=== PATIENT | female | born 1955 | race Caucasian/White ===

== ENCOUNTER → 2016-10-11 | Outpatient (CLI) | payer BC ==
[~2016-10-11] MED LIST: ACET-1311 PO; ACET-749 PO; AMIT10TA6 PO; ATEN50TA8 PO; FENO145T26 PO; GLUCOSAMINE; IBUP-1050 PO; SUMA50TA15 PO
--- NOTE | 2016-10-13 12:32 | MAMMOGRAPHY REPORT ---
BILATERAL DIGITAL SCREENING MAMMOGRAM TOMOSYNTHESIS WITH CAD: 10/11/2016 CLINICAL HISTORY: Routine screening. Patient has no complaints. TECHNIQUE: Breast tomosynthesis in addition to standard 2D mammography was performed. Current study was also evaluated with a Computer Aided Detection (CAD) system. COMPARISON: Comparison is made to exams dated: 10/09/2015 mammogram, 10/07/2014 mammogram, 10/04/2013 m ammogram, 10/03/2012 mammogram, 09/28/2011 mammogram, and 08/10/2010 mammogram - [facility] nter. BREAST COMPOSITION: There are scattered areas of fibroglandular density in both breasts. FINDINGS: There are scattered bilateral punctate benign-appearing micro-calcifications. Stable nodul ar asymmetry in the lateral anterior right breast appears very similar on all available prior mammogr ams dating back to at least 08/04/2009, therefore likely benign. No new suspicious mass, architectur al distortion or cluster of microcalcifications is seen. IMPRESSION: ACR BI-RADS CATEGORY 1: NEGATIVE There is no mammographic evidence of malignancy. A 1 year screening mammogram is recommended. The pa tient will receive written notification of the results. Approximately 10% of breast cancers are not detected with mammography. A negative mammographic report should not delay biopsy if a clinically suggestive mass is present. Mellissa Segundo M.D. ay/:10/11/2016 15:11:57 Medical Physicist: Faith ANN)(Aleks), [facility] letter sent: Normal 1/2 BI-RADS Code: ACR BI-RADS Category 1: Negative
== END | disposition home or self-care (01) ==
LOC: C.MAMM 10:11
PROVIDERS: ATTEND Family Medicine
DX: Z12.31 Encounter for screening mammogram for malignant neoplasm of breast (principal)

== ENCOUNTER 2016-10-19 10:29 | Observation (INO) | payer BC ==
[~2016-10-19] VITALS: Ht 167.6 cm; Wt 83.6 kg
[~2016-10-19 10:29] MED LIST changes: -AMIT10TA6 PO; -ATEN50TA8 PO; -FENO145T26 PO
[2016-10-19 11:02] LABS: HEMATOCRIT 38.8 % (37-47); MEAN CELL VOLUME 89.4 fL (80-100); MEAN CORPUSCULAR HGB CONC 33.5 g/dl (32-36); MEAN PLATELET VOLUME 9.3 fL (7.4-10.4); PLATELET COUNT 244 K/uL (130-400); RED BLOOD COUNT 4.34 M/uL (4.2-5.4); WHITE BLOOD COUNT 6.15 K/uL (4.8-10.8)
--- NOTE | 2016-10-19 11:12 | DIAGNOSTIC IMAGING REPORT ---
CHEST ONE VIEW PORTABLE HISTORY:61 yearsFemalechest pain COMPARISON: None available TECHNIQUE: Upright AP view of the chest. FINDINGS: The patient is slightly rotated to the right. Cardiac silhouette is mildly enlarged. There is no pneumothorax, pleural effusion, focal airspace consolidation or overt pulmonary edema. There is mild left hemidiaphragmatic elevation. The bones are grossly intact. IMPRESSION: No acute cardiopulmonary process. The above report was generated using voice recognition software. It may contain grammatical, syntax or spelling errors. Electronically signed by: Jose Nolasco M.D. 10/19/2016 11:11 AM Dictated Date/Time: 10/19/2016 11:10 AM
[2016-10-19 11:14] LABS: PROTHROMBIN TIME (PATIENT) 10.6 SECONDS (9.0-12.0)
[2016-10-19] MEDS ORDERED: ATEN50TA8 PO (11:19)
[2016-10-19] MEDS ORDERED: AMIT10TA6 PO (11:19)
[2016-10-19] MEDS ORDERED: FENO145T26 PO (11:19)
[2016-10-19 11:20] LABS: BUN/CREATININE RATIO 19.9 (10-20); CALCIUM 9.3 mg/dl (8.5-10.1); CREATININE 1.1 mg/dl (0.60-1.20); POTASSIUM 4.2 mmol/L (3.5-5.1)
[2016-10-19] MEDS ORDERED: ASPIRIN 81 MG CHEW PO STA (11:23)
[2016-10-19 11:24] LABS: ALB/GLOB RATIO 0.9 (0.9-2); CKMB/CK RATIO 2.1 (0-3.0)
[2016-10-19] MEDS ORDERED: MoRPHine SULFATE 2 MG/ML CARP IV PRN (12:45)
[2016-10-19] MEDS ORDERED: ONDANSETRON INJ 2 MG/ML 2 ML VIAL IV PRN (12:45)
[2016-10-19] MEDS ORDERED: ZOLPIDEM TARTRATE 5 MG TAB PO PRN (12:45)
[2016-10-19] MEDS ORDERED: ACETAMINOPHEN 325 MG TAB PO PRN (12:45)
[2016-10-19] MEDS ORDERED: NITROGLYCERIN 0.4 MG SL PER TAB CHARGE SL PRN (12:45)
[2016-10-19] MEDS ORDERED: ALUMINUM/MAGNESIUM/SIMETH (MAALOX MAX) 30 ML UDC PO PRN (12:45)
[2016-10-19] MEDS ORDERED: MAGNESIUM HYDROXIDE SUSP 30 ML UDC PO PRN (12:45)
--- NOTE | 2016-10-19 13:38 | History and Physical ---
History & Physical Date & Time of Service: Oct 19, 2016 at 13:28 Chief Complaint: Chest Pains, Extreme Sweating, Dizzy Primary Care Physician: Elder Ashton M.D. History of Present Illness Source: patient 61 y/o F Hx HTN, HPL - pt was exerting herself at work, moving around palates when she developed acute pain at her R sternal border accompanied bu profuse diaphoresis and light-headedness. She attending the emergency room where the pain without accompanying symptoms has recurred to a lesser degree. She denies SOB, N/V. Past Medical/Surgical History 1) HTN 2) HPL 3) Migraine headaches Family History Mother alive and well Father alive - CAD - OK at age 65 Social History Does not smoke - occasional ETOH Smoking Status: Never Smoker Immunizations History of Influenza Vaccine: No History of Tetanus Vaccine?: Yes History of Pneumococcal: No History of Hepatitis B Vaccine: No Allergies Coded Allergies: Penicillins (Verified Allergy, Intermediate, HIVES, 10/19/16) Sulfa Drugs (Verified Allergy, Intermediate, HIVES, 10/19/16) Home Medications Scheduled Fenofibrate (Tricor ), 145 MG PO DAILY Sumatriptan Succinate (Imitrex), 50 MG PO PRN Miscellaneous Medications Amitriptyline Hcl (Elavil), 10 MG PO Atenolol (Tenormin), 50 MG PO Review of Systems Constitutional: + sweats, No fever, No chills Eyes: No worsening of vision ENT: No hearing loss, No unusual epistaxis, No nasal symptoms Respiratory: No cough, No sputum, No wheezing Cardiovascular: + chest pain, No orthopnea, No PND Abdomen: No pain, No nausea, No vomiting Musculoskeletal: No joint pain Genitourinary - Female: No dysuria, No urinary frequency, No urinary urgency Neurologic: + problem reported (lightheaded with chest pain), No memory loss, No paralysis, No weakness Psychiatric: No depression symptoms Endocrine: No fatigue Hematologic / Lymphatic: No abnormal bleeding/bruising Integumentary: No rash Allergic / Immunologic: No environmental allergies Physical Exam Vital Signs Date Time Temp Pulse Resp B/P (MAP) Pulse Ox O2 Delivery O2 Flow Rate FiO2 10/19/16 13:25 67 10/19/16 12:41 51 20 120/83 97 Room Air 10/19/16 11:00 59 20 124/81 99 Room Air 10/19/16 10:55 98 Room Air 10/19/16 10:55 60 20 124/81 97 Room Air 10/19/16 10:47 60 10/19/16 10:36 36.6 58 18 135/82 99 Room Air General Appearance: WD/WN, no apparent distress Head: normocephalic Eyes: normal inspection ENT: normal ENT inspection Neck: supple, no adenopathy, thyroid normal, no JVD Respiratory/Chest: chest non-tender, lungs clear, normal breath sounds Cardiovascular: regular rate, rhythm, no edema, no gallop, no JVD, no murmur, normal peripheral pulses Abdomen/GI: normal bowel sounds, non tender, soft Back: normal inspection, no CVA tenderness, no muscle spasm, normal range of motion Extremities/Musculoskelatal: normal inspection, no calf tenderness, normal capillary refill, no pedal edema, normal range of motion 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, no motor/sensory deficits, alert, normal mood/affect, normal reflexes, oriented x 3 Skin: normal color, warm/dry, no rash Diagnostics Laboratory Results Results Past 24 Hours Test 10/19/16 10:50 10/19/16 10:57 10/19/16 12:46 Range/Units White Blood Count 6.15 4.8-10.8 K/uL Red Blood Count 4.34 4.2-5.4 M/uL Hemoglobin 13.0 12.0-16.0 g/dL Hematocrit 38.8 37-47 % Mean Corpuscular Volume 89.4 80-100 fL Mean Corpuscular Hemoglobin 30.0 25-34 pg Mean Corpuscular Hemoglobin Concent 33.5 32-36 g/dl RDW Standard Deviation 45.4 36.4-46.3 fL RDW Coefficient of Variation 13.7 11.5-14.5 % Platelet Count 244 130-400 K/uL Mean Platelet Volume 9.3 7.4-10.4 fL Prothrombin Time 10.6 9.0-12.0 SECONDS Prothromb Time International Ratio 1.0 0.9-1.1 Activated Partial Thromboplast Time 26.5 21.0-31.0 SECONDS Partial Thromboplastin Ratio 1.0 Sodium Level 141 136-145 mmol/L Potassium Level 4.2 3.5-5.1 mmol/L Chloride Level 107 98-107 mmol/L Carbon Dioxide Level 27 21-32 mmol/L Anion Gap 7.0 3-11 mmol/L Blood Urea Nitrogen 22 7-18 mg/dl Creatinine 1.10 0.60-1.20 mg/dl Est Creatinine Clear Calc Drug Dose 60.4 ml/min Estimated GFR () 63.6 Estimated GFR (Non- 54.9 BUN/Creatinine Ratio 19.9 10-20 Random Glucose 88 70-99 mg/dl Calcium Level 9.3 8.5-10.1 mg/dl Total Bilirubin 0.4 0.2-1 mg/dl Aspartate Amino Transf (AST/SGOT) 24 15-37 U/L Alanine Aminotransferase (ALT/SGPT) 33 12-78 U/L Alkaline Phosphatase 64 45-117 U/L Total Creatine Kinase 152 26-192 U/L Creatine Kinase MB 3.2 0.5-3.6 ng/ml Creatine Kinase MB Ratio 2.1 0-3.0 Total Protein 7.7 6.4-8.2 gm/dl Albumin 3.6 3.4-5.0 gm/dl Globulin 4.1 2.5-4.0 gm/dl Albumin/Globulin Ratio 0.9 0.9-2 Bedside Troponin I < 0.030 0-0.045 ng/ml EKG NSR Impression Assessment and Plan 61 y/o F Hx HTN, HPL - pt was exerting herself at work, moving around palates when she developed acute pain at her R sternal border accompanied bu profuse diaphoresis and light-headedness. She attending the emergency room where the pain without accompanying symptoms has recurred to a lesser degree. She denies SOB, N/V. 1) CP - serial enzymes, ASA, NTG/morphine PRN - scheduled for AM stress echo 2) HTN - Cont Atenolol 3) HPL - cont Fenofibrate Full code - Heparin prophylaxis - total time for this admit including review of labs, meds, EKG - discussion with pt an ER attending - 30 min Level of Care Telemetry Resuscitation Status FULL RESUSCITATION VTE Prophylaxis VTE Risk Assessment Done? Y/N: Yes Risk Level: Low Given or contraindicated: Enoxaparin (Lovenox)SQ
[2016-10-19] MEDS ORDERED: IV FLUIDS COMPLETED PRN (13:45)
[2016-10-19 14:15] VITALS: BP 122/78; PULSE 61; TEMP 36.7; O2SAT 94; Ht 167.6 cm; Wt 83.6 kg
[2016-10-19] MEDS ORDERED: POLYETHYLENE (MIRALAX) 17 GM PACK PO PRN (14:15)
[2016-10-19 15:29] VITALS: BP 106/70; PULSE 58; TEMP 36.7; O2SAT 96
[2016-10-19 16:00] VITALS: O2SAT 97
[2016-10-19] MEDS ORDERED: ENOXAPARIN 40 MG/0.4 ML SYR SC SCH (16:00)
[2016-10-19 19:24] VITALS: O2SAT 97
[2016-10-19 19:48] VITALS: BP 133/82; PULSE 62; TEMP 36.6; O2SAT 97
--- NOTE | 2016-10-19 20:47 | EMERGENCY ROOM VISIT NOTE ---
ED Visit Note First contact with patient: 11:11 Chief Complaint: Chest pain. History of Present Illness: Ms. Servin is a 61 year-old white female complaining of right sided chest pain. Historically patient reports she has no history of coronary artery disease. She does report she has a history of dyslipidemia. Additionally she reports her father had coronary artery disease and had an CA when he was in his 60s. 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 Her discomfort started approximately one hour before she arrived in the emergency department. Pain is just over the sternal border in the mid sternal area. She describes this discomfort as a pressure sensation. Since its onset it has waxed and waned in intensity from a level of 8/10 to completely pain free. On my initial assessment she is pain-free. She describes these episodes where the pain just starts, slowly intensifies and after 3-5 minutes and self resolved. She has not identified any aggravating or alleviating factors related to this discomfort. She has not taken any medication for this discomfort prior to arrival at the hospital. On the initial episode of pain she reports she was diaphoretic but does admit that she was working heavily. A coworker who observed her said at the same time she appeared flush and her eyes were dilated and bloodshot. Associated with her discomfort she reports when she sat down she started having dizziness; she describes dizziness as looking at her computer screen and the screen appeared to be waving. She denies any associated including fevers, chills, upper respiratory tract symptoms, wheezing, cough, shortness of breath, orthopnea, dependent edema, previous clots, claudication, cramping, recent surgery/inactivity/extended travel, abdominal pain, nausea, vomiting, diarrhea, constipation, rectal bleeding, black/tarry stools, urinary symptoms, back/flank pain. Review of Systems: As noted above in history of present illness. All body systems were reviewed and found to be negative as noted above. Past Medical History: As previously noted, migraine headaches, unspecified skin disorder, asthma, bronchitis, gastric ulcers, status post tubal ligation, hysterectomy and unspecified knee surgery. Current Medications: Atenolol, Elavil, TriCor, Imitrex. Allergies to Medications: Penicillin and sulfa. Social History: Patient is currently employed; she feels safe in her home environment; she denies tobacco and alcohol use. Physical Examination: Vital Signs: Date Time Temp Pulse Resp B/P (MAP) Pulse Ox O2 Delivery O2 Flow Rate FiO2 10/19/16 12:41 51 20 120/83 97 Room Air 10/19/16 11:00 59 20 124/81 99 Room Air 10/19/16 10:55 60 20 124/81 97 Room Air 10/19/16 10:36 36.6 58 18 135/82 99 Room Air GENERAL: 61-year-old female in no acute distress, nontoxic-appearing, afebrile and hemodynamically stable. NEUROLOGICAL: Awake, alert and oriented to person, place and time. Answering questions appropriately and following commands. Normal gait. Good hand eye coordination. SKIN: Warm, dry and pink. No soft tissue eruptions or trauma noted. HEENT: Atraumatic and normocephalic. PERRLA. Sclera white and conjunctiva pink. Oral cavity moist and pink. Pharynx is nonerythematous or edematous. Speech normal. No lymphadenopathy. Trachea midline. No jugular venous distention. No carotid bruits. BACK: No tenderness over the bony spine. No CVA tenderness. THORAX: Lungs sounds are clear to auscultation and equal bilaterally with symmetrical chest wall. No wheezing, rales or rhonchi. No crepitus, tenderness , subcutaneous air or deformities noted. HEART: Regular rate and rhythm. No gallops, rubs or murmurs are appreciated. No lifts, heaves or thrills. PMI is not displaced. ABDOMEN: Flat, soft and nontender. Positive bowel sounds in all quadrants. No guarding, rigidity or organomegaly. EXTREMITIES: Moves all extremities well on command and with purpose. All distal neurovascular statuses are intact and equal bilaterally. No dependent edema or calf tenderness/cords. ED Course: Patient is assessed as noted above. Patient's medication list was reviewed. Laboratory Testing: Test 10/19/16 10:50 10/19/16 10:57 Range/Units White Blood Count 6.15 4.8-10.8 K/uL Red Blood Count 4.34 4.2-5.4 M/uL Hemoglobin 13.0 12.0-16.0 g/dL Hematocrit 38.8 37-47 % Mean Corpuscular Volume 89.4 80-100 fL Mean Corpuscular Hemoglobin 30.0 25-34 pg Mean Corpuscular Hemoglobin Concent 33.5 32-36 g/dl RDW Standard Deviation 45.4 36.4-46.3 fL RDW Coefficient of Variation 13.7 11.5-14.5 % Platelet Count 244 130-400 K/uL Mean Platelet Volume 9.3 7.4-10.4 fL Prothrombin Time 10.6 9.0-12.0 SECONDS Prothromb Time International Ratio 1.0 0.9-1.1 Activated Partial Thromboplast Time 26.5 21.0-31.0 SECONDS Partial Thromboplastin Ratio 1.0 Sodium Level 141 136-145 mmol/L Potassium Level 4.2 3.5-5.1 mmol/L Chloride Level 107 98-107 mmol/L Carbon Dioxide Level 27 21-32 mmol/L Anion Gap 7.0 3-11 mmol/L Blood Urea Nitrogen 22 7-18 mg/dl Creatinine 1.10 0.60-1.20 mg/dl Est Creatinine Clear Calc Drug Dose 60.4 ml/min Estimated GFR () 63.6 Estimated GFR (Non- 54.9 BUN/Creatinine Ratio 19.9 10-20 Random Glucose 88 70-99 mg/dl Calcium Level 9.3 8.5-10.1 mg/dl Total Bilirubin 0.4 0.2-1 mg/dl Aspartate Amino Transf (AST/SGOT) 24 15-37 U/L Alanine Aminotransferase (ALT/SGPT) 33 12-78 U/L Alkaline Phosphatase 64 45-117 U/L Total Creatine Kinase 152 26-192 U/L Creatine Kinase MB 3.2 0.5-3.6 ng/ml Creatine Kinase MB Ratio 2.1 0-3.0 Total Protein 7.7 6.4-8.2 gm/dl Albumin 3.6 3.4-5.0 gm/dl Globulin 4.1 2.5-4.0 gm/dl Albumin/Globulin Ratio 0.9 0.9-2 Bedside Troponin I < 0.030 0-0.045 ng/ml Chest X-Rays: Were read by myself and the radiologist showing no acute infiltrates, effusions or pneumothorax. Normal heart silhouette and bony anatomy. There is mild elevation of the left hemidiaphragm. EKG: Was read by myself and reviewed with Dr. Hector; shows sinus bradycardia with a ventricular rate of 57 bpm. Normal axis, intervals and complexes. No acute ST changes indicating ischemia, injury or infarction. This was reviewed from a previous from November 2007 and no acute changes were noted. Patient was hydrated with normal saline and was given 324 mg of aspirin by mouth. Patient was reassessed multiple times during her stay in the emergency department. Patient's case was reviewed with Dr. Hector; we agreed on diagnostic approach, treatment, disposition and plan. Patient's case was reviewed with Dr. Guzman, pharmacovigilance specialist; we had a discussion about a possible stress test today versus hospital stay. He recommended because of the timing of the second troponin she should be brought into the hospital and stress tomorrow. Patient's case was consulted with case management and Dr. Kimbrough, hospitalist, for medical observation/admission. Patient was educated about today's findings. Clinical Impression: Acute chest pain. Decision-Making: Initially my differential diagnosis I considered acute coronary syndrome, thoracic aneurysm, pneumothorax, pneumonia, musculoskeletal pain and other causes. Disposition and Plan: Patient be brought in the hospital by the hospitalist; please see his notes and orders for final disposition and plan.
[2016-10-19] MEDS ORDERED: AMITRIPTYLINE HCL 10 MG TAB PO SCH (21:00)
[2016-10-19 23:10] VITALS: BP 109/70; PULSE 60; TEMP 36.9; O2SAT 94
[2016-10-20 04:19] VITALS: BP 122/81; PULSE 54; TEMP 36.4; O2SAT 99
[2016-10-20 07:57] VITALS: BP 130/86; PULSE 73; TEMP 36.5; O2SAT 96
[2016-10-20] MEDS ORDERED: ASPIRIN 325 MG ECTAB PO SCH (09:00)
[2016-10-20] MEDS ORDERED: FENOFIBRATE 145 MG TAB PO SCH (09:00)
[2016-10-20] MEDS ORDERED: PERFLUTREN LIPID MICROSPHERE (DEFINITY) IV ONE (11:07)
--- NOTE | 2016-10-20 11:40 | EXERCISE STRESS ECHO ---
*NOTICE TO RECEIVING [employer] This information is strictly Confidential and protected under [place] law. [place] law prohibits you from making any further disclosure of this information unless further disclosure is expressly permitted by the written consent of the person to whom it pertains or is authorized by law. A general authorization for the release of medical or other information is not sufficient for this purpose. Hospital accepts no responsibility if the information is made available to any other person, INCLUDING THE PATIENT. Interpretation Summary * Conclusions -- * Stress Echo: * 1. Negative stress echo for ischemia at 97 % MPHR. * 2. Negative exercise ECG for ischemia at 97 % MPHR. * 3. Appropriate blood pressure response to exercise. * 4. No arrhythmia. * 5. Study terminated due to fatigue. No chest pain reported. * 6. Good exercise tolerance. * 7. Technically difficult study, enhanced with IV Definity. * Echo: * 1. Normal left ventricular size and systolic function. EF 55-60 %. No regional wall motion abnormalities. No left ventricular hypertrophy. Type 1 diastolic dysfunction. * 2. No significant valvular abnormalities. Procedure Details * ECHOEX, CPT #[id number] * ECHO COLOR FLOW, CPT #[id number] * ECHO DOPPLER, CPT #[id number] * A contrast injection of Definity was performed to improve assessment of LV function. * Contrast was injected into an intravenous site in the right arm. * One vial of Definity ultrasound contrast was diluted in normal saline to a total volume of 10 ml. A total of '3.5' ml of solution was administered during imaging. * Lot # [id number] of Definity utilized for procedure. * Expiration date NOV 26. * The attending nurse who injected the contrast agent was KENYON SALMERON CPL, RN. Left Ventricle * The left ventricle is normal in size. * There is normal left ventricular wall thickness. * Left ventricular systolic function is normal. * Resting wall motion: Normal. Stress wall motion: Appropriate increase in Left ventricular systolic function and decrease in cavity size. No stress induced segmental wall motion abnormalities. * The left ventricular ejection fraction increases normally with stress. The left ventricular end-systolic cavity size reduces post-stress (normal response). The left ventricular wall motion with stress is normal. Right Ventricle * The right ventricle is normal in size and function. * The right ventricular systolic function is normal as assessed by tricuspid annular plane systolic excursion (TAPSE) (normal >1.5 cm). Atria * The left atrial size is normal. * Right atrial size is normal. * There is no evidence of atrial septal defect, but resolution does not allow assessment for a patent foramen ovale. Mitral Valve * The mitral valve leaflets appear normal. There is no evidence of stenosis, fluttering, or prolapse. * There is trace mitral regurgitation. Tricuspid Valve * The tricuspid valve is not well visualized, but is grossly normal. * There is no tricuspid stenosis. * Significant tricuspid regurgitation is absent. Aortic Valve * The aortic valve is trileaflet. * No hemodynamically significant valvular aortic stenosis. * No aortic regurgitation is present. Pulmonic Valve * The pulmonary valve is inadequately visualized, but the Doppler data is adequate for interpretation. * There is no significant pulmonary regurgitation. Great Vessels * The aortic root is normal size. * Normal hepatic venous flow pattern. Pericardium * There is no pericardial effusion. Stress Parameters * NSR at 87 bpm. * Stress ECG: No ST changes. No arrhythmias. * No arrhythmia were noted with stress. * The stress portion of this study was personally supervised by the undersigned interpreting physician. * Rest heart rate was '80' BPM. * Rest blood pressure was '130/46 mmHg' * Maximum heart rate achieved was 157 bpm. * Maximum heart rate was 97 % of maximum age-predicted heart rate. * Maximum blood pressure was '172/84 mmHg' * Total exercise time was '9 minutes 1 second' * Maximum exercise MET level achieved was '10.10' METS * Exercise was terminated due to 'fatigue' * Normal blood pressure response to exercise. Left Ventricular Diastolic Function * Grade I diastolic dysfunction, (abnormal relaxation pattern). MMode 2D Measurements and Calculations IVSd 1.1 cm IVSs 1.5 cm LVIDd 4.6 cm LVIDs 3.1 cm LVPWd 1.0 cm LVPWs 1.4 cm IVS/LVPW 1.1 FS 31.9 % EDV(Teich) 97.5 ml ESV(Teich) 39.0 ml EF(Teich) 60.0 % EDV(cubed) 97.5 ml ESV(cubed) 30.8 ml EF(cubed) 68.4 % % IVS thick 40.4 % % LVPW thick 33.0 % LV mass(C)d 172.5 grams LV mass(C)dI 89.0 grams/m\S\2 LV mass(C)s 158.3 grams LV mass(C)sI 81.6 grams/m\S\2 SV(Teich) 58.5 ml SI(Teich) 30.2 ml/m\S\2 SV(cubed) 66.7 ml SI(cubed) 34.4 ml/m\S\2 Ao root diam 3.7 cm Ao root area 10.7 cm\S\2 LA dimension 2.7 cm LA/Ao 0.74 LVOT diam 2.0 cm LVOT area 3.3 cm\S\2 Doppler Measurements and Calculations MV E max nabeel 67.4 cm/sec MV A max nabeel 71.2 cm/sec MV E/A 0.95 MV P1/2t max nabeel 72.8 cm/sec MV P1/2t 67.8 msec MVA(P1/2t) 3.2 cm\S\2 MV dec slope 314.5 cm/sec\S\2 MV dec time 0.26 sec Ao V2 max 124.2 cm/sec Ao max PG 6.2 mmHg Ao max PG (full) 2.4 mmHg DHARMESH(V,A) 2.6 cm\S\2 DHARMESH(V,D) 2.6 cm\S\2 LV V1 max PG 3.8 mmHg LV V1 max 97.3 cm/sec PA V2 max 81.2 cm/sec PA max PG 2.6 mmHg
--- NOTE | 2016-10-20 11:55 | Discharge Summary ---
Discharge Summary Date of Service Oct 20, 2016. Discharge Summary Admission Date: Oct 19, 2016 at 12:41 Discharge Date: Oct 20, 2016 Discharge Disposition: Home Principal Diagnosis: Chest pain Problems/Secondary Diagnoses: HTN Dyslipidemia Migraines Anxiety Immunizations: Have You Had Influenza Vaccine: No History of Tetanus Vaccine?: Yes History of Pneumococcal: No History of Hepatitis B Vaccine: No Procedures: CHEST ONE VIEW PORTABLE HISTORY:61 yearsFemalechest pain COMPARISON: None available TECHNIQUE: Upright AP view of the chest. FINDINGS: The patient is slightly rotated to the right. Cardiac silhouette is mildly enlarged. There is no pneumothorax, pleural effusion, focal airspace consolidation or overt pulmonary edema. There is mild left hemidiaphragmatic elevation. The bones are grossly intact. IMPRESSION: No acute cardiopulmonary process. The above report was generated using voice recognition software. It may contain grammatical, syntax or spelling errors. Electronically signed by: Jose Nolasco M.D. 10/19/2016 11:11 AM Dictated Date/Time: 10/19/2016 11:10 AM The status of this report is Signed. Draft = Not yet reviewed or approved by Radiologist. Signed = Reviewed and approved by Radiologist. Stress echocardiogram: Interpretation Summary * Conclusions -- * Stress Echo: * 1. Negative stress echo for ischemia at 97 % MPHR. * 2. Negative exercise ECG for ischemia at 97 % MPHR. * 3. Appropriate blood pressure response to exercise. * 4. No arrhythmia. * 5. Study terminated due to fatigue. No chest pain reported. * 6. Good exercise tolerance. * 7. Technically difficult study, enhanced with IV Definity. * Echo: * 1. Normal left ventricular size and systolic function. EF 55-60 %. No regional wall motion abnormalities. No left ventricular hypertrophy. Type 1 diastolic dysfunction. * 2. No significant valvular abnormalities. Procedure Details * ECHOEX, CPT #[id number] * ECHO COLOR FLOW, CPT #[id number] * ECHO DOPPLER, CPT #[id number] * A contrast injection of Definity was performed to improve assessment of LV function. * Contrast was injected into an intravenous site in the right arm. * One vial of Definity ultrasound contrast was diluted in normal saline to a total volume of 10 ml. A total of '3.5' ml of solution was administered during imaging. * Lot # [id number] of Definity utilized for procedure. * Expiration date NOV 26. * The attending nurse who injected the contrast agent was KENYON SALMERON CPL , RN. Left Ventricle * The left ventricle is normal in size. * There is normal left ventricular wall thickness. * Left ventricular systolic function is normal. * Resting wall motion: Normal. Stress wall motion: Appropriate increase in Left ventricular systolic function and decrease in cavity size. No stress induced segmental wall motion abnormalities. * The left ventricular ejection fraction increases normally with stress. The left ventricular end-systolic cavity size reduces post-stress (normal response). The left ventricular wall motion with stress is normal. Right Ventricle * The right ventricle is normal in size and function. * The right ventricular systolic function is normal as assessed by tricuspid annular plane systolic excursion (TAPSE) (normal >1.5 cm). Atria * The left atrial size is normal. * Right atrial size is normal. * There is no evidence of atrial septal defect, but resolution does not allow assessment for a patent foramen ovale. Mitral Valve * The mitral valve leaflets appear normal. There is no evidence of stenosis, fluttering, or prolapse. * There is trace mitral regurgitation. Tricuspid Valve * The tricuspid valve is not well visualized, but is grossly normal. * There is no tricuspid stenosis. * Significant tricuspid regurgitation is absent. Aortic Valve * The aortic valve is trileaflet. * No hemodynamically significant valvular aortic stenosis. * No aortic regurgitation is present. Pulmonic Valve * The pulmonary valve is inadequately visualized, but the Doppler data is adequate for interpretation. * There is no significant pulmonary regurgitation. Great Vessels * The aortic root is normal size. * Normal hepatic venous flow pattern. Pericardium * There is no pericardial effusion. Stress Parameters * NSR at 87 bpm. * Stress ECG: No ST changes. No arrhythmias. * No arrhythmia were noted with stress. * The stress portion of this study was personally supervised by the undersigned interpreting physician. * Rest heart rate was '80' BPM. * Rest blood pressure was '130/46 mmHg' * Maximum heart rate achieved was 157 bpm. * Maximum heart rate was 97 % of maximum age-predicted heart rate. * Maximum blood pressure was '172/84 mmHg' * Total exercise time was '9 minutes 1 second' * Maximum exercise MET level achieved was '10.10' METS * Exercise was terminated due to 'fatigue' * Normal blood pressure response to exercise. Left Ventricular Diastolic Function * Grade I diastolic dysfunction, (abnormal relaxation pattern). Medication Reconciliation Continued Medications: Amitriptyline Hcl (Elavil) 10 Mg Tab 10 MG PO, TAB Atenolol (Tenormin) 50 Mg Tab 50 MG PO, TAB Fenofibrate (Tricor ) 145 Mg Tab 145 MG PO DAILY Sumatriptan Succinate (Imitrex) 50 Mg Tab 50 MG PO PRN, 0 Refills Referrals At Discharge Follow up Referrals: Family Practice Referral - Within 1 Week with Elder Ashton M.D. Discharge Exam Review of Systems: Constitutional: No fever, No chills, No sweats, No weakness, No fatigue Respiratory: No cough, No shortness of breath, No hemoptysis Cardiovascular: No chest pain, No edema, No palpitations Abdomen: No pain, No nausea, No vomiting, No diarrhea, No constipation Musculoskeletal: No joint pain, No muscle pain, No swelling, No calf pain Genitourinary - Female: No dysuria, No hematuria Neurologic: No weakness, No numbness/tingling Psychiatric: No depression symptoms, No anxiety Hematologic / Lymphatic: No abnormal bleeding/bruising Integumentary: No rash, No itch, No new/changing skin lesions Physical Exam: General Appearance: no apparent distress Eyes: normal inspection, PERRL ENT: hearing grossly normal Neck: supple Respiratory/Chest: lungs clear, no respiratory distress, no accessory muscle use Cardiovascular: regular rate, rhythm Abdomen / GI: normal bowel sounds, non tender, soft Extremities: no calf tenderness, no pedal edema Neurologic/Psychiatric: alert, normal mood/affect, oriented x 3 Skin: normal color, warm/dry, no rash Hospital Course Admission H&P: 61 y/o F Hx HTN, HPL - pt was exerting herself at work, moving around palates when she developed acute pain at her R sternal border accompanied bu profuse diaphoresis and light-headedness. She attending the emergency room where the pain without accompanying symptoms has recurred to a lesser degree. She denies SOB, N/V. Physical Exam Vital Signs Date Time Temp Pulse Resp B/P (MAP) Pulse Ox O2 Delivery O2 Flow Rate FiO2 10/19/16 13:25 67 10/19/16 12:41 51 20 120/83 97 Room Air 10/19/16 11:00 59 20 124/81 99 Room Air 10/19/16 10:55 98 Room Air 10/19/16 10:55 60 20 124/81 97 Room Air 10/19/16 10:47 60 10/19/16 10:36 36.6 58 18 135/82 99 Room Air General Appearance: WD/WN, no apparent distress Head: normocephalic Eyes: normal inspection ENT: normal ENT inspection Neck: supple, no adenopathy, thyroid normal, no JVD Respiratory/Chest: chest non-tender, lungs clear, normal breath sounds Cardiovascular: regular rate, rhythm, no edema, no gallop, no JVD, no murmur, normal peripheral pulses Abdomen/GI: normal bowel sounds, non tender, soft Back: normal inspection, no CVA tenderness, no muscle spasm, normal range of motion Extremities/Musculoskelatal: normal inspection, no calf tenderness, normal capillary refill, no pedal edema, normal range of motion Neurologic/Psych: 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, no motor/sensory deficits, alert, normal mood/affect, normal reflexes, oriented x 3 Skin: normal color, warm/dry, no rash Chest pain- r/o ACS: - Admitted to [facility] for cardiac monitoring- no acute events - Serial cardiac enzymes- negative - Stress ECHO- negative for ischemia - ASA 325 mg daily - IV Morphine 2 mg q30m PRN HTN- STABLE: Continue Atenolol 50 mg daily Dyslipidemia: Continue Fenofibrate 145 mg daily Migraines: Continue Imitrex 50 mg PRN Anxiety: Continue Elavil 10 mg daily GI Prophylaxis: Maalox PRN, IV Zofran PRN, Colace and/or Milk of Mag PRN, MiraLAX DVT Prophylaxis: Lovenox Code Status: LEVEL I, FULL Dispo: Discharge to home Total Time Spent: Greater than 30 minutes This includes examination of the patient, discharge planning, medication reconciliation, and communication with other providers. Discharge Instructions Please refer to the electronic Patient Visit Report (Discharge Instructions) for additional information. Follow-Up Please follow-up with your PCP within 5-7 days Please follow-up/keep all of your subspecialty appointments Additional Copies To Elder Ashton M.D.
--- NOTE | 2016-10-20 11:57 | Discharge Instructions ---
Discharge Instructions Date of Service Oct 20, 2016. Admission Reason for Admission: Chest Pain Discharge Discharge Diagnosis / Problem: Chest pain Discharge Goals Goal(s): Decrease discomfort, Diagnostic testing Activity Recommendations Activity Limitations: resume your previous activity . Instructions / Follow-Up Instructions / Follow-Up You presented to the emergency department due to acute chest pain while at work. Your cardiac workup was negative for any acute events. Please follow-up with PCP to further evaluate and treat your symptoms. Continue all regular home medications as prescribed. Please follow-up with your PCP within 5-7 days Please follow-up/keep all of your subspecialty appointments Activation of Emergency Medical System: Call 911, immediately, if you experience any of the following: Warning Signs and Symptoms of a Heart Attack: * Chest pain that is not relieved by medication * Shortness of breath Otherwise, call your doctor immediately if you have: * Lightheadedness, dizziness, or fainting * Feeling of irregular heartbeat or fast pulse Home Care: * If you are having chest pain, call 911 for an ambulance[address] Do NOT drive yourself to the hospital. * Ask your family members to learn CPR. * Learn to take your own blood pressure and pulse. Keep a record of your results. Ask your doctor when you should seek emergency medical attention. He or she will tell you which blood pressure reading is dangerous. Lifestyle Changes: * Maintain a healthy weight. Get help to lose any extra pounds. * Cut back on salt. 1. Limit canned, dried, packaged, and fast foods. 2. Don't add salt to your food. 3. Season foods with herbs instead of salt when you cook. * Break the smoking habit. Enroll in a stop-smoking program to improve your chances of success. * Limit fatty foods. * Check your lipid levels regularly. (Your doctor can show you how to do this. ) * Build up your activity according to your doctor's recommendation. * Ask your doctor when it's okay to resume sexual activity. * Tell your doctor about any erectile dysfunction (ED) medication you are taking. Some ED medications are not safe if you take certain heart medications. * Try to manage stress. Follow Up: It is important for you to keep your follow up appointments with your medical provider. Current Hospital Diet Patient's current hospital diet: AHA Diet (Heart Healthy) Discharge Diet Recommended Diet: AHA Diet (Heart Healthy) Procedures Procedures Performed: Chest x-ray Stress echocardiogram Pending Studies Studies pending at discharge: no Laboratory Results Last 24 Hours Test 10/19/16 10:50 10/19/16 10:57 10/19/16 12:46 10/19/16 18:54 White Blood Count 6.15 K/uL Red Blood Count 4.34 M/uL Hemoglobin 13.0 g/dL Hematocrit 38.8 % Mean Corpuscular Volume 89.4 fL Mean Corpuscular Hemoglobin 30.0 pg Mean Corpuscular Hemoglobin Concent 33.5 g/dl RDW Standard Deviation 45.4 fL RDW Coefficient of Variation 13.7 % Platelet Count 244 K/uL Mean Platelet Volume 9.3 fL Prothrombin Time 10.6 SECONDS Prothromb Time International Ratio 1.0 Activated Partial Thromboplast Time 26.5 SECONDS Partial Thromboplastin Ratio 1.0 Sodium Level 141 mmol/L Potassium Level 4.2 mmol/L Chloride Level 107 mmol/L Carbon Dioxide Level 27 mmol/L Anion Gap 7.0 mmol/L Blood Urea Nitrogen 22 mg/dl Creatinine 1.10 mg/dl Est Creatinine Clear Calc Drug Dose 60.4 ml/min Estimated GFR () 63.6 Estimated GFR (Non- 54.9 BUN/Creatinine Ratio 19.9 Random Glucose 88 mg/dl Calcium Level 9.3 mg/dl Total Bilirubin 0.4 mg/dl Aspartate Amino Transf (AST/SGOT) 24 U/L Alanine Aminotransferase (ALT/SGPT) 33 U/L Alkaline Phosphatase 64 U/L Total Creatine Kinase 152 U/L Creatine Kinase MB 3.2 ng/ml Creatine Kinase MB Ratio 2.1 Total Protein 7.7 gm/dl Albumin 3.6 gm/dl Globulin 4.1 gm/dl Albumin/Globulin Ratio 0.9 Bedside Troponin I < 0.030 ng/ml Troponin I < 0.015 ng/ml < 0.015 ng/ml Hepatitis C Antibody Screen NEG Medical Emergencies . Who to Call and When: Medical Emergencies: If at any time you feel your situation is an emergency, please call 911 immediately. . Non-Emergent Contact Non-Emergency issues call your: Primary Care Provider . . "Provider Documentation" section prepared by Toma Lewis. . VTE Core Measure Inpt VTE Proph given/why not?: Enoxaparin (Lovenox)SQ
[2016-10-20 12:30] VITALS: BP 126/86; PULSE 81; TEMP 37; O2SAT 96
[2016-10-20 12:31] VITALS: BP 130/86; PULSE 73; TEMP 36.5; O2SAT 96
== END 2016-10-20 13:04 | disposition home or self-care (01) ==
LOC: C.EDB 10:30 → C.2T 12:41 → ENRESERV 13:23
PROVIDERS: ADMIT Internal Medicine; ATTEND Internal Medicine
DX: R07.9 Chest pain, unspecified (principal); I10 Essential (primary) hypertension; E78.5 Hyperlipidemia, unspecified; G43.909 Migraine, unspecified, not intractable, without status migrainosus; F41.9 Anxiety disorder, unspecified; Z82.49 Family history of ischemic heart disease and other diseases of the circulatory system; Z79.899 Other long term (current) drug therapy